=== PATIENT | male | born 1950 | race Caucasian/White ===

== ENCOUNTER 2018-09-05 18:26 | Emergency (ER) | payer OTHER, SELFPAY ==
--- NOTE | 2018-09-05 20:42 | RAD ---
THREE VIEW RIGHT SHOULDER 09/05/18 INDICATION: Injury, pain. FINDINGS: No fracture or dislocation. 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 IMPRESSION: No acute osseous abnormality of the right shoulder. POS: NWK
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
--- NOTE | 2018-09-05 21:12 | CT ---
CERVICAL SPINE CT NONCONTRAST: 09/05/18 INDICATION: Injury, pain. FINDINGS: There is a moderate multilevel degenerative change most pronounced at the lower cervical spine. No ev idence of acute fracture or significant subluxation. There is no craniocervical distraction injury. IMPRESSION: No acute fracture or subluxation of cervical spine. POS: ALLISONK
--- NOTE | 2018-09-05 21:14 | CT ---
LUMBAR SPINE CT NONCONTRAST: 09/05/18 INDICATION: Low back pain, recent injury. FINDINGS: Postop fusion. Bilateral pedicle screws and vertical interconnecting rods present spanning L4 through S1. Anterior vertebral screw is also present at L4. Intradiscal space device present at L4-5. Bone g raft material is present at the interspace of L4-5. No subluxation. No compression deformity. Incidental note of atherosclerosis. IMPRESSION: Multilevel degenerative change and postoperative change of the lumbosacral spine without acute fractu re or subluxation identified. POS: KAYLYNN
== END 2018-09-05 22:00 | disposition home or self-care (01) ==
LOC: ERS 18:26
DX: S16.1XXA Strain of muscle, fascia and tendon at neck level, initial encounter (principal); M54.5 Low back pain; M25.511 Pain in right shoulder; E11.9 Type 2 diabetes mellitus without complications; I10 Essential (primary) hypertension; V43.52XA Car driver injured in collision with other type car in traffic accident, initial encounter
CPT/HCPCS: 70450; 72125; 72131